=== PATIENT | female | born 1975 | race Caucasian/White ===

== ENCOUNTER 2018-05-13 22:08 | Emergency (ER) | payer OTHER ==
[~2018-05-13] VITALS: Ht 160 cm; Wt 59.0 kg
[2018-05-13 22:17] VITALS: Ht 160 cm; Wt 59.0 kg
[2018-05-13] MEDS ORDERED: ALBUTEROL SULF8.5 GM (22:18)
[2018-05-13] MEDS ORDERED: OMEPRAZOLE40 MG PO (22:18)
[2018-05-13] MEDS ORDERED: FERROUS SULFAT325 MG PO (22:18)
[2018-05-13 23:00] LABS: BASOPHILS 0.3 % (0-2); EOSINOPHILS 2.8 % (0-7); HEMATOCRIT 33.6 % (36.0-48.0); HEMOGLOBIN 10.9 g/dL (12-16); IMMATURE GRANULOCYTES 0.3 % (0-5); LYMPHOCYTES 14.4 % (15-50); MCH 25.8 pg (26.0-34.0); MCHC 32.4 g/dL (31.0-37.0); MCV 79.4 fL (80.0-100.0); MEAN PLATELET VOLUME 10.6 fL (7.4-10.4); MONOCYTES 7.2 % (2-11); PLATELET COUNT 111 10x3/uL (130-400); RBC 4.23 10x6/uL (4.00-5.40); RDW 14.8 % (11.5-14.5); WBC 10.7 10x3/uL (4.8-10.8)
[2018-05-13 23:17] LABS: ALBUMIN 3.1 g/dL (3.4-5.0); ALKALINE PHOSPHATASE 54 U/L (46-116); ALT (SGPT) 15 U/L (10-68); CALC OSMOLALITY 273 mosm/kg (275-300); CARBON DIOXIDE 26.3 mmol/L (21.0-32.0); CHLORIDE - SERUM 103 mmol/L (98-107); CREATININE - SERUM 0.7 mg/dL (0.6-1.3); GLUCOSE 93 mg/dL (74-106); LIPASE 143 U/L (73-393); POTASSIUM - SERUM 4.4 mmol/L (3.5-5.1); PROTEIN - SERUM 6.8 g/dL (6.4-8.2); SODIUM 137 mmol/L (136-145); UREA NITROGEN 13 mg/dL (7-18); eGFR NON AFRICAN AMERICAN > 90 mL/min (90-120)
[2018-05-13 23:52] LABS: APPEARANCE CLEAR (CLEAR); BILIRUBIN NEGATIVE (NEGATIVE); COLOR YELLOW (YELLOW); GLUCOSE NEGATIVE (NEGATIVE); KETONE NEGATIVE (NEGATIVE); NITRITE NEGATIVE (NEGATIVE); PROTEIN NEGATIVE (NEGATIVE); UROBILINOGEN NORMAL (NORMAL)
[2018-05-14 00:02] LABS: UDS - AMPHET POSITIVE QUAL (NEGATIVE); UDS - BARB NEGATIVE QUAL (NEGATIVE); UDS - BENZO NEGATIVE QUAL (NEGATIVE); UDS - COCAINE NEGATIVE QUAL (NEGATIVE); UDS - OPIATE NEGATIVE QUAL (NEGATIVE); UDS - PCP NEGATIVE QUAL (NEGATIVE); UDS - THC NEGATIVE QUAL (NEGATIVE)
[2018-05-14 00:40] VITALS: BP 110/65
== END 2018-05-14 00:41 | disposition home or self-care (01) ==
LOC: D.ER 22:08
PROVIDERS: Family Medicine
DX: R10.9 Unspecified abdominal pain (principal); F15.99 Other stimulant use, unspecified with unspecified stimulant-induced disorder; R91.8 Other nonspecific abnormal finding of lung field